=== PATIENT | female | born 1940 | race Caucasian/White ===

== ENCOUNTER 2017-11-19 17:51 | Emergency (ER) | payer OTHER ==
[~2017-11-19 17:51] MED LIST: BONI150T PO; LEVO.1 PO; PERC7.5T13 PO; ZOCO40TA PO
[2017-11-19 17:57] VITALS: BP 185/77; PULSE 88; RESP 20; TEMP 97.5; O2SAT 98
[2017-11-19] MEDS ORDERED: LEVO.1 PO (18:14)
[2017-11-19] MEDS ORDERED: ASPI81CH7 CHEW (18:14)
[2017-11-19] MEDS ORDERED: AMLO5TAB2 PO (18:14)
[2017-11-19] MEDS ORDERED: SIMV20TA PO (18:14)
--- NOTE | 2017-11-19 18:23 | PD ---
HPI Chief Complaint: Head Injury Time Seen by Provider: 18:09 Travel History International Travel<30 days: No Contact w/Intl Traveler<30days: No Traveled to known affect area: No History of Present Illness HPI 77-year-old female here with laceration to the scalp caused by trip and fall prior to arrival. She reports she fell from a standing position after she tripped over a cord hitting her head on the edge of a bookcase. She denies loss of consciousness. She is not anticoagulated. She denies headache, visual changes, chest pain, shortness breath, abdominal pain, appears to her weakness of the extremities. Symptom severity is moderate. No aggravating or alleviating factors. PFSH Past Medical History Arthritis: Yes Blood Disorders: No Cancer: No Cardiovascular Problems: No High Cholesterol: Yes Endocrine: No Genitourinary: No Immune Disorder: No Musculoskeletal: No Neurologic: No Psychiatric: No Reproductive: Yes (CELLULITIS) Respiratory: No Thyroid Disease: Yes Dilation and Curettage (D&C): Yes Past Surgical History AICD: No Arteriovenous Shunt: No Insulin Pump: No Joint Replacement: No Pacemaker: No Social History Alcohol Use: No Tobacco Use: No Substance Use: No Allergies-Medications (Allergen,Severity, Reaction): Coded Allergies: red dye (Unverified Allergy, Mild, 11/19/17) Sulfa (Sulfonamide Antibiotics) (Verified Allergy, Unknown, [facility], 11/19/17) ciprofloxacin (Unverified Allergy, Unknown, 11/19/17) Reported Meds & Prescriptions Reported Meds & Active Scripts Active Reported Amlodipine (Amlodipine Besylate) 5 Mg Tab 5 Mg PO DAILY Aspirin Children's (Aspirin) 81 Mg Chew 81 Mg CHEW DAILY Simvastatin 20 Mg Tab 20 Mg PO DAILY Synthroid (Levothyroxine Sodium) 100 Mcg Tab 100 Mcg PO DAILY Review of Systems Except as stated in HPI: all other systems reviewed are Neg General / Constitutional: No: Fever Eyes: No: Visual changes HENT: No: Headaches Cardiovascular: No: Chest Pain or Discomfort Respiratory: No: Shortness of Breath Gastrointestinal: No: Abdominal Pain Genitourinary: No: Dysuria Musculoskeletal: Positive: Pain (head, right knee) Skin: No Rash Neurologic: No: Weakness Physical Exam Narrative GENERAL: Alert well-appearing 77-year-old female SKIN: 3.5 CM laceration to the frontal scalp bleeding well-controlled. HEAD: Normocephalic. EYES: Pupils equal and round. EOMs intact. No injection or drainage. ENT: The facial bone tenderness. No nasal bleeding or discharge. Mucous membranes pink and moist. NECK: Trachea midline. No midline spine tenderness. CARDIOVASCULAR: Regular rate and rhythm. No chest wall tenderness RESPIRATORY: No accessory muscle use. Clear to auscultation. Equal and even chest rise GASTROINTESTINAL: Abdomen soft, non-tender, nondistended. MUSCULOSKELETAL: Extremities without clubbing, cyanosis, or edema. No obvious deformities. +TTP right anterior knee with mild swelling and ecchymosis. The knee is stable, full flexion causes discomfort. 2+ distal pulses. Normal sensation. This Refill. NEUROLOGICAL: Awake and alert. No obvious cranial nerve deficits. Motor grossly within normal limits. Five out of 5 muscle strength in the arms and legs. Normal speech. PSYCHIATRIC: Appropriate mood and affect; insight and judgment normal. Data Data Last Documented VS Vital Signs Date Time Temp Pulse Resp B/P (MAP) Pulse Ox O2 Delivery O2 Flow Rate FiO2 11/19/17 18:15 99 11/19/17 17:57 97.5 88 20 185/77 (113) Orders Orders Ct Brain W/O Iv Contrast(Rout) (11/19/17 18:10) Ct Cerv Spine W/O Contrast (11/19/17 18:10) Knee, Complete (4vws) (11/19/17 ) Tetanus/Diphtheria Tox Adult (Tetanus/Di (11/19/17 20:00) MDM Medical Decision Making Medical Screen Exam Complete: Yes Emergency Medical Condition: Yes Differential Diagnosis Scalp laceration, closed head injury, ICH, cervical strain, cervical fracture, patella fracture, knee contusion Narrative Course 77-year-old female with head injury and scalp laceration from a trip and fall prior to arrival. She has a normal neurologic exam. CT brain: Negative for hemorrhage. CT cervical spine: Negative for fracture. Knee x-ray: Negative for fracture. All findings were discussed with patient. Laceration repair was performed. At Patient's request sutures rather than tushar were used for wound closure. Return precautions were discussed. Patient verbalizes understanding and agrees to plan Procedures Procedure Narrative LACERATION LOCATION: Right frontal scalp LENGTH: 3.5 centimeters NUMBER OF STITCHES/TUSHAR: 6 REPAIR: The area of the laceration was prepped with Betadine and sterilely draped. The laceration was infiltrated with 1% lidocaine with epi. The wound was copiously irrigated and explored without evidence of foreign body, tendon injury or neurovascular injury. The wound was closed using 3-0 Prolene. This was a sIngle layer repair. A sterile dressing was applied. The patient was advised to keep the dressing clean and dry. Patient tolerated the procedure well. Diagnosis Primary Impression: Scalp laceration Qualified Codes: S01.01XA - Laceration without foreign body of scalp, initial encounter Additional Impression: Knee contusion Qualified Codes: S80.01XA - Contusion of right knee, initial encounter Referrals: Primary Care Physician Additional Instructions: Cleansed the area daily with soap and water. Apply ice to the area. Tylenol as needed for pain. Sutures need to be removed in 7-10 days. Return to the emergency department if he develops severe headache, repeated vomiting, visual changes, numbness or weakness in extremities Disposition: 01 DISCHARGE HOME Condition: Stable Carissa Dumont Nov 19, 2017 18:23
--- NOTE | 2017-11-19 18:52 | RADRPT ---
EXAM DATE/TIME: 11/19/2017 18:20 [facility] COMPARISON: No previous studies available for comparison. INDICATIONS : Tripped and fell, laceration to forehead. RADIATION DOSE: 59.23 CTDIvol (mGy) MEDICAL HISTORY : Hypercholesterolemia. Thyroid disease SURGICAL HISTORY : Knee ENCOUNTER: Initial ACUITY: 1 day PAIN SCALE: 5/10 LOCATION: cranial TECHNIQUE: Multiple contiguous axial images were obtained of the head. Using automated exposure control and adj ustment of the mA and/or kV according to patient size, radiation dose was kept as low as reasonably a chievable to obtain optimal diagnostic quality images. DICOM format image data is available electro nically for review and comparison. FINDINGS: CEREBRUM: The ventricles are normal for age. No evidence of midline shift, mass lesion, hemorrhage or acute in farction. No extra-axial fluid collections are seen. POSTERIOR FOSSA: The cerebellum and brainstem are intact. The 4th ventricle is midline. The cerebellopontine angle i s unremarkable. EXTRACRANIAL: The visualized portion of the orbits is intact. SKULL: The calvaria is intact. No evidence of skull fracture. CONCLUSION: Right frontal cephalhematoma otherwise negative Rogelio Capps MD FACR on November 19, 2017 at 18:49 Board Certified Radiologist. This report was verified electronically.
--- NOTE | 2017-11-19 18:54 | RADRPT ---
EXAM DATE/TIME: 11/19/2017 18:20 [facility] COMPARISON: No previous studies available for comparison. INDICATIONS : Tripped and fell, neck pain. RADIATION DOSE: 26.11 CTDIvol (mGy) MEDICAL HISTORY : Hypercholesterolemia. Thyroid disease SURGICAL HISTORY : Knee ENCOUNTER: Initial ACUITY: 1 day PAIN SCALE: 5/10 LOCATION: neck TECHNIQUE: Volumetric scanning of the cervical spine was performed. Multiplanar reconstructions in the sagittal, coronal and oblique axial planes were performed. Using automated exposure control and adjustment o f the mA and/or kV according to patient size, radiation dose was kept as low as reasonably achievable to obtain optimal diagnostic quality images. DICOM format image data is available electronically f or review and comparison. FINDINGS: VERTEBRAE: Normal vertebral body height. ALIGNMENT: No evidence of subluxation. Degenerative changes at C1-C2. C2-C3: The bony spinal canal is normal in size. No evidence of disc bulge or herniation. The neural forami na are bilaterally patent. C3-C4: Mild facet disease with bilateral foraminal encroachment. C4-C5: Uncinate ridging with bilateral foramina encroachment spinal stenosis is mild C5-C6: Uncinate ridging and bilateral foramen placement. C6-C7: The bony spinal canal is normal in size. No evidence of disc bulge or herniation. The neural forami na are bilaterally patent. C7-T1: The bony spinal canal is normal in size. No evidence of disc bulge or herniation. The neural forami na are bilaterally patent. CONCLUSION: Degenerative changes in the cervical spine. No fracture. Rogelio Capps MD FACR on November 19, 2017 at 18:50 Board Certified Radiologist. This report was verified electronically.
--- NOTE | 2017-11-19 19:01 | PD ---
Physical Exam Narrative I, Dr. Cantor, have reviewed the advance practice practitioner's documentation and am in agreement, met with the patient face to face, made the diagnosis, and the medical decision making was done by me. *My assessment and Findings: Laceration vs. ICH vs. contusion 77yo F here with forehead laceration and right knee pain s/p trip and fall today. Said her head hit the edge of book case. She tripped on a wire on the floor. Denies any LOC, any anticoagulation, chest pain, sob, n/v, abdominal pain, focal weakness or numbness. CT brain ordered because pt is over 65. Right knee: +Ecchymoses with mild ttp. Good range of motion. Sensation intact. Distal pulses intact. CT cspine showed degenerative changes in the cervical spine. No fracture. CT brain showed right frontal cephalohematoma otherwise negative. Xray right knee showed degenerative changes otherwise negative. Return precautions given. Data Data Last Documented VS Vital Signs Date Time Temp Pulse Resp B/P (MAP) Pulse Ox O2 Delivery O2 Flow Rate FiO2 11/19/17 18:15 99 11/19/17 17:57 97.5 88 20 185/77 (113) Orders Orders Ct Brain W/O Iv Contrast(Rout) (11/19/17 18:10) Ct Cerv Spine W/O Contrast (11/19/17 18:10) Knee, Complete (4vws) (11/19/17 ) Tetanus/Diphtheria Tox Adult (Tetanus/Di (11/19/17 20:00) Ed Discharge Order (11/19/17 19:56) MDM Supervised Visit with SARAH: Yes Diagnosis Primary Impression: Head injury Qualified Codes: S09.90XA - Unspecified injury of head, initial encounter Shaista Cantor DO Nov 19, 2017 19:01
--- NOTE | 2017-11-19 19:41 | RADRPT ---
EXAM DATE/TIME: 11/19/2017 18:56 [facility] COMPARISON: No previous studies available for comparison. INDICATIONS : Pain post fall. MEDICAL HISTORY : Arthritis. Hypercholesterolemia. Hypertension. SURGICAL HISTORY : Athroscopic surgery to right knee. ENCOUNTER: Initial ACUITY: 1 day PAIN SCORE: 5/10 LOCATION: Right Knee. FINDINGS: Degenerative changes about the knee without joint effusion or fracture. There is loss of articular c artilage in both the medial and lateral compartments. CONCLUSION: Degenerative changes otherwise negative Rogelio Capps MD FACR on November 19, 2017 at 19:37 Board Certified Radiologist. This report was verified electronically.
[2017-11-19] MEDS ORDERED: TETANUS/DIPHTHERIA TOXOID ADULT 0.5 ML VIAL IM ONE (20:00)
== END 2017-11-19 20:06 | disposition home or self-care (01) ==
LOC: PHEFT 17:51
DX: S01.01XA Laceration without foreign body of scalp, initial encounter (principal); S80.01XA Contusion of right knee, initial encounter; E07.9 Disorder of thyroid, unspecified; E78.00 Pure hypercholesterolemia, unspecified; W01.190A Fall on same level from slipping, tripping and stumbling with subsequent striking against furniture, initial encounter; Z23 Encounter for immunization
CPT/HCPCS: 12002; 70450; 72125; 73564; 90471; 90714